=== PATIENT | female | born 1960 | race Caucasian/White ===

== ENCOUNTER 2016-09-13 07:29 | Day surgery (SDC) | payer BC ==
[~2016-09-13] VITALS: Ht 157.5 cm; Wt 50.3 kg
[2016-09-13 08:35] VITALS: Ht 157.5 cm; Wt 50.3 kg
[2016-09-13] MEDS ORDERED: Ventolin INH (08:43)
[2016-09-13] MEDS ORDERED: Vitamin D3 (08:43)
[2016-09-13] MEDS ORDERED: ZOLPIDEM (08:43)
[2016-09-13] MEDS ORDERED: DETROL (08:43)
[2016-09-13] MEDS ORDERED: FLUT100B INHALATION (08:43)
[2016-09-13] MEDS ORDERED: STOOL SOFTNER (08:43)
[2016-09-13] MEDS ORDERED: LORATADINE (08:43)
[2016-09-13] MEDS ORDERED: [UNRECOGNIZED DRUG - OTHER] (08:43)
[2016-09-13] MEDS ORDERED: SIMV10TA6 PO (08:43)
[2016-09-13] MEDS ORDERED: ASPI-535 PO (08:43)
[2016-09-13 09:09] VITALS: BP 127/72; PULSE 78; RESP 13
[2016-09-13] MEDS ORDERED: LIDOCAINE 2% (SDV) 5 ML INJ ONE (09:39)
[2016-09-13] MEDS ORDERED: PROPOFOL 40 ML ONE (09:39)
--- NOTE | 2016-09-13 13:48 | GILP ---
DATE OF PROCEDURE: PROCEDURE: Colonoscopy with biopsy, removal of 2 flat polyps. INDICATION: A 56-year-old female undergoing this procedure for removal of a flat polyp. The patien t had a saline lift polypectomy. Some tissue was left behind. Earnestine ink was injected. The purpose is to evaluate the colon and make sure no polyp is left behind. The risks of the procedure, relate d and unrelated complications, anesthetic risks, alternatives discussed, and informed consent was ob tained. DESCRIPTION OF PROCEDURE: The patient was brought to the GI lab, sedated by the anesthesiologist. After optimal sedation, a digital examination done which was normal. Scope was passed with much eas e into the rectum. At 45 to 50 cm, Earnestine ink was identified. There were 2 flat polyps seen. Both the polyps were successfully removed. These were in the vicinity of Earnestine ink. The rest of the col on was normal. Entered into terminal ileum up to 1 foot, it was normal. Cecum was normal. While c oming out, mucosa thoroughly inspected. The preparation was good. Adequate hemorrhoids identified. IMPRESSION: Two flat polyps successfully removed. One was diminutive, another was about 8 to 9 mm in diameter. It was totally flat with 2 jumbo biopsy forceps. The entire polyp was removed. The p atient tolerated the procedure very well. IMPRESSION: 1. Diminutive polyp removed by jumbo biopsy forceps. 2. Flat 8 to 9 mm polyp was completely removed by 2 bites of jumbo biopsy forceps. 3. Rest of the colon was normal. 4. Terminal ileum up to 1 foot was normal. 5. Hemorrhoids identified. 6. Clarity was good to adequate. PLAN: To repeat colonoscopy in 5 years, stay on a high fiber diet, and will review the histopatholo gy of the polyp. Dictated By: JACQUELINE WOLFE/OLVIN Conf#: [id number] DID#: [id number] CC: ;*EndCC*
== END 2016-09-13 13:00 | disposition home or self-care (01) ==
LOC: GIL 07:29
PROVIDERS: ATTEND Internal Medicine Gastroenterology
DX: K63.5 Polyp of colon (principal); K64.9 Unspecified hemorrhoids; J44.9 Chronic obstructive pulmonary disease, unspecified
CPT/HCPCS: 45380; 88305; Z7610